=== PATIENT | male | born 1945 | race Caucasian/White ===

== ENCOUNTER 2018-01-22 20:50 | Emergency (ER) | payer MEDICARE ==
[2018-01-22] MEDS ORDERED: Ondansetron INJ* 2 MG/ML VIAL IV ONE (21:36)
[2018-01-22] MEDS ORDERED: Morphine INJ* 4 MG/ML 1 ML CARPUJECT IV ONE (21:36)
[2018-01-22] MEDS ORDERED: Morphine VIAL* 4 MG/ML VIAL (1 ml vial) IV ONE ×2 (22:06→22:08)
--- NOTE | 2018-01-22 23:12 | ED ---
Keyon Mays Nikita, scribed for Mynor Edwards MD on 01/22/18 at 2137 . GI/ HPI - HPI Summary HPI Summary: This patient is a 72 year old M presenting to ED with a chief complaint of burst blood vessel on the R side of his penis since 1 hour ago while having sexual intercourse. The patient rates the pain 7/10 in severity. Symptoms aggravated by nothing. Symptoms alleviated by nothing. Patient reports urinary frequency, penile swelling, and penis numbness. The patient reports that he is not on any blood thinners. - History of Current Complaint Chief Complaint: EDUrogenitalProblems Time Seen by Provider: 01/22/18 21:21 Stated Complaint: GROIN INJURY Hx Obtained From: Patient Onset/Duration: Started Hours Ago, Still Present Timing: Constant, Lasting Hours Severity: Moderate Current Severity: Moderate Pain Intensity: 7 Additional Locations for Males: Penis - Patient reports urinary frequency and penile swelling and numbness. Associated Signs and Symptoms: Positive: Other: - Patient reports urinary frequency, penile swelling, and penile numbness. Aggravating Factor(s): Nothing Alleviating Factor(s): Nothing - Allergy/Home Medications Allergies/Adverse Reactions: Allergies Allergy/AdvReac Type Severity Reaction Status Date / Time hornet venom Allergy Anaphylatic Verified 01/22/18 21:05 Shock PMH/Surg Hx/FS Hx/Imm Hx Endocrine/Hematology History: Reports: Other Endocrine/Hematological Disorders - elevated H+H, takes daily aspirin Denies: Hx Diabetes Cardiovascular History: Denies: Hx Hypertension - 'white coat syndrome", Hx Pacemaker/ICD History: Reports: Hx Benign Prostatic Hyperplasia Denies: Hx Renal Disease Sensory History: Reports: Hx Contacts or Glasses, Hx Deafness - L ear, Hx Hearing Problem - deaf L ear Denies: Hx Hearing Aid Opthamlomology History: Reports: Hx Contacts or Glasses Psychiatric History: Reports: Hx Anxiety, Hx Panic Disorder, Hx Post Traumatic Stress Disorder Denies: Hx of Violent Episodes Against Others - Surgical History Surgery Procedure, Year, and Place: HERNIA REPAIR X2, APPENDECTOMY Hx Anesthesia Reactions: No Infectious Disease History: No Infectious Disease History: Denies: Traveled Outside the [place] in Last 30 Days - Family History Known Family History: Negative: Cardiac Disease, Hypertension, Diabetes - Social History Alcohol Use: None Substance Use Type: Reports: None Smoking Status (MU): Never Smoked Tobacco Review of Systems Negative: Fever Positive: frequency, other - penile numbness and swelling of blood All Other Systems Reviewed And Are Negative: Yes Physical Exam - Summary Physical Exam Summary: Appearance: Well appearing, no pain distress Skin: warm, dry, reflects adequate perfusion Head/face: normal Eyes: EOMI, ROGELIO ENT: normal Neck: supple, non-tender Respiratory: CTA, breath sounds present Cardiovascular: RRR, pulses symmetrical Abdomen: non-tender, soft Bowel Sounds: present Musculoskeletal: normal, strength/ROM intact Neuro: normal, sensory motor intact, A&Ox3 : positive eggplant sign with deformity just procimal to the glands, deviates the glands to the left, large hematoma Triage Information Reviewed: Yes Vital Signs On Initial Exam: Initial Vitals Temp Pulse Resp BP Pulse Ox 98.0 F 62 18 155/98 95 01/22/18 21:02 01/22/18 21:02 01/22/18 21:02 01/22/18 21:02 01/22/18 21:02 Vital Signs Reviewed: Yes Diagnostics - Vital Signs Vital Signs Temp Pulse Resp BP Pulse Ox 01/22/18 21:02 98.0 F 62 18 155/98 95 - Laboratory Lab Statement: Any lab studies that have been ordered have been reviewed, and results considered in the medical decision making process. GIGU Course/Dx - Course Course Of Treatment: Pt with eggplant sign on exam. Hx of BPH but not on blood thinners. No urology available here. Will require transfer. BLS transfer to care of Urologist at [facility]. - Diagnoses Differential Diagnoses - Male: Other - penile fracture Provider Diagnoses: Penile fracture - Physician Notifications Discussed Care Of Patient With: Guille Miles Time Discussed With Above Provider: 22:17 Instructed by Provider To: Other - Consulted Dr. Miles who accepts the patient for transfer and asked for a bray. Discharge - Sign-Out/Discharge Documenting (check all that apply): Discharge - Discharge Plan Condition: Stable Disposition: TRANS [facility] OF CARE FAC Referrals: Radha Harris [Primary Care Provider] - - Billing Disposition and Condition Condition: STABLE Disposition: EMTALA The documentation as recorded by the Keyon terry Nikita accurately reflects the service I personally performed and the decisions made by , Mynor Edwards MD.
[2018-01-23 00:01] VITALS: BP 155/90
== END 2018-01-22 23:57 | disposition short-term general hospital (02) ==
LOC: ED 20:50
DX: S39.840A Fracture of corpus cavernosum penis, initial encounter (principal); R35.0 Frequency of micturition; R20.0 Anesthesia of skin; X58.XXXA Exposure to other specified factors, initial encounter; Y92.9 Unspecified place or not applicable
CPT/HCPCS: 96374; 99284; J2270; J2405